=== PATIENT | female | born 1940 | race Caucasian/White ===

== ENCOUNTER 2017-08-21 09:50 | Emergency (ER) | payer OTHER ==
[2017-08-21 13:13] LABS: BASOPHILS # (AUTO) 0.1 10^3/uL (0.0-0.1); EOSINOPHILS # (AUTO) 0.1 10^3/uL (0.0-0.7); HGB - HEMOGLOBIN 15.4 g/dL (12.0-16.0); LYMPHOCYTES # (AUTO) 1.9 10^3/uL (1.5-3.5); LYMPHOCYTES % (AUTO) 29.5 %; MEAN CORPUSCULAR HEMOGLOBIN 30.1 pg (27.0-31.0); MEAN CORPUSCULAR HGB CONC 34.4 g/dL (32.0-36.0); MEAN CORPUSCULAR VOLUME 87.5 fL (81.0-99.0); MEAN PLATELET VOLUME 8.9 fL (7.9-10.8); MONOCYTES # (AUTO) 0.7 10^3/uL (0.0-1.0); MONOCYTES % (AUTO) 10.5 %; NEUTROPHILS # (AUTO) 3.7 10^3/uL (1.5-6.6); PLT - PLATELET COUNT 166 10^3/uL (130-450); RED BLOOD COUNT 5.11 10^6/uL (4.20-5.40); RED CELL DISTRIBUTION WIDTH 13.7 % (12.0-15.0); WHITE BLOOD COUNT 6.3 x10^3/uL (4.8-10.8)
[2017-08-21 13:33] LABS: ALBUMIN 3.7 g/dL (3.2-5.5); ALBUMIN/GLOBULIN RATIO 1.4 (1.0-2.2); CREATININE 0.6 mg/dL (0.4-1.0); TOTAL PROTEIN 6.4 g/dL (6.7-8.2)
--- NOTE | 2017-08-21 14:07 | ED Physician Documentation ---
History of Present Illness - Stated complaint Stated Complaint: LOW PULSE - Chief complaint Chief Complaint: Cardiac - History obtained from History obtained from: Patient - History of Present Illness Pain level max: 0 Pain level now: 0 - Additonal information Additional information: The patient is a 77-year-old female who presents with low pulse, which she measured as low as 39 this morning when she took her blood pressure. She has been recording pulses in the 40s intermittently for the past 4 months. She denies any associated chest pain or shortness of breath. She denies lightheadedness, fever, nausea or vomiting. Her past medical history is significant for Graves' disease, for which she is status post thyroidectomy. Her thyroid replacement medication was decreased one week ago by her Naturopathic physician, but she does not know the dosage that she was taking or that she is currently taking. She has been prescribed lisinopril 10 mg daily for hypertension, but she has decreased the dosage to 5 mg of her own volition. Review of Systems Constitutional: denies: Fever Nose: denies: Congestion Throat: denies: Sore throat Cardiac: denies: Chest pain / pressure Respiratory: denies: Dyspnea, Cough GI: denies: Abdominal Pain, Nausea, Vomiting : denies: Dysuria Skin: denies: Rash Musculoskeletal: denies: Back pain, Extremity swelling Neurologic: denies: Focal weakness, Numbness, Headache PD PAST MEDICAL HISTORY - Past Medical History Cardiovascular: Hypertension Musculoskeletal: Osteoarthritis, Osteopenia Other Past Medical History: Grave's Disease - Past Surgical History Other past surgical history: Thyroidectomy - Present Medications Home Medications: Ambulatory Orders Medication Instructions Recorded Confirmed Lisinopril 08/21/17 - Allergies Allergies/Adverse Reactions: Allergies Allergy/AdvReac Type Severity Reaction Status Date / Time No Known Drug Allergies Allergy Verified 08/21/17 09:58 - Social History Does the pt smoke?: No PD ED PE NORMAL - Vitals Vital signs reviewed: Yes (hypertensive) - General General: Alert and oriented X 3, Well developed/nourished - HEENT HEENT: Atraumatic, Moist mucous membranes, Pharynx benign - Neck Neck: Supple, no meningeal sign, No adenopathy, No JVD - Cardiac Cardiac: No murmur, Other (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, with pulse in the low 40s.) - Respiratory Respiratory: No respiratory distress, Clear bilaterally - Abdomen Abdomen: Soft, Non tender - Back Back: No CVA TTP - Derm Derm: No rash - Extremities Extremities: No edema, No calf tenderness / cord - Neuro Neuro: Alert and oriented X 3, No motor deficit, No sensory deficit Results - Vitals Vitals: Oxygen O2 Source Room air - EKG (time done) 10:20 Rate: Rate (enter#) (106) Rhythm: Other (Ventricular bigeminy) [place]: Normal Intervals: Normal NM QRS: Normal Ischemia: Normal ST segments Compare to prior EKG: Old EKG unavailable Computer interpretation: Agree with computer - Labs Labs: Laboratory Tests 08/21/17 08/21/17 08/21/17 13:07 13:07 13:07 WBC 6.3 RBC 5.11 Hgb 15.4 Hct 44.7 MCV 87.5 MCH 30.1 MCHC 34.4 RDW 13.7 Plt Count 166 MPV 8.9 Neut # 3.7 Lymph # 1.9 [place] # 0.7 Eos # 0.1 Baso # 0.1 Absolute Nucleated RBC 0.00 Nucleated RBC % 0.0 Sodium 137 Potassium 3.9 Chloride 104 Carbon Dioxide 25 Anion Gap 8.0 BUN 16 Creatinine 0.6 Estimated GFR (MDRD) 96 Glucose 84 Calcium 9.0 Total Bilirubin 1.0 AST 28 ALT 29 Alkaline Phosphatase 67 Troponin I < 0.04 Total Protein 6.4 L Albumin 3.7 Globulin 2.7 Albumin/Globulin Ratio 1.4 Lipase 29 TSH 08/21/17 13:07 WBC RBC Hgb Hct MCV MCH MCHC RDW Plt Count MPV Neut # Lymph # [place] # Eos # Baso # Absolute Nucleated RBC Nucleated RBC % Sodium Potassium Chloride Carbon Dioxide Anion Gap BUN Creatinine Estimated GFR (MDRD) Glucose Calcium Total Bilirubin AST ALT Alkaline Phosphatase Troponin I Total Protein Albumin Globulin Albumin/Globulin Ratio Lipase TSH < 0.08 L PD MEDICAL DECISION MAKING - ED course Complexity details: reviewed results, re-evaluated patient, considered differential, d/w patient, d/w PMD ED course: The patient's presentation is significant for ventricular bigeminy with a perfused rate in the 40's. She is asymptomatic. The bigeminy is intermittent, with an otherwise normal sinus rhythm. Electrocardiogram reveals no evidence of cardiac ischemia, and troponin is normal. Based on her recordings, she has had asymptomatic bigeminy intermittently for several months. Her TSH is less than 0.08, but that is not surprising given that she is status post thyroidectomy. I discussed her condition with CHRIS Cohen, who is on-call for Dr. Prince, the patient's primary physician. I discussed with him, as well as with the patient , the possibility of referral to a rounding machine operator with electrophysiologic expertise. I discussed with the patient potentially worrisome signs or symptoms that should prompt reevaluation in the emergency department. Departure - Departure Disposition: 01 Home, Self Care Clinical Impression: Atrial arrhythmia, Bigeminy Condition: Stable Instructions: ED Dysrhythmia Unspecified Follow-Up: Frederic Prince DO [Primary Care Provider] - Comments: Continue taking your thyroid replacement medication as prescribed. Follow up with your primary physician within 1-2 weeks. Call to schedule appointment. You may need a referral to a rounding machine operator with electrophysiology expertise. Return to the emergency department if you develop shortness of breath, lightheadedness, chest pain, or otherwise worsening symptoms. Discharge Date/Time: 08/21/17 14:27
[2017-08-21 14:21] VITALS: BP 156/84
== END 2017-08-21 14:27 | disposition home or self-care (01) ==
LOC: ED 09:50
DX: I49.8 Other specified cardiac arrhythmias (principal); R00.8 Other abnormalities of heart beat; I10 Essential (primary) hypertension; E05.00 Thyrotoxicosis with diffuse goiter without thyrotoxic crisis or storm
CPT/HCPCS: 36415; 80053; 83690; 84443; 84484; 85025; 93005; 99283; 99284

== ENCOUNTER 2018-10-25 08:00 | Outpatient (CLI) | payer OTHER ==
[2018-10-25 19:20] LABS: THYROID STIMULATING HORMONE 4.03 uIU/mL (0.34-5.60)
[2018-10-25 19:22] LABS: FREE T4 (FREE THYROXINE) 0.32 ng/dL (0.58-1.64)
== END 2018-10-25 23:59 | disposition home or self-care (01) ==
LOC: LAB.N 08:00
PROVIDERS: ATTEND Family Medicine
DX: E89.0 Postprocedural hypothyroidism (principal)
CPT/HCPCS: 36415; 84439; 84443; 84481

== ENCOUNTER 2018-11-05 14:22 | Outpatient (CLI) | payer OTHER ==
--- NOTE | 2018-11-08 | XRAY Report ---
Reason: HIP JOINT PAIN, RIGHT Procedure Date: 11/05/2018 Accession Number: [id number] / [id number] Procedure: XRN - Hip w/Pelvis 2-3V RT CPT Code: FULL RESULT: EXAM: RIGHT HIP RADIOGRAPHY EXAM DATE: 11/05/2018 02:36 PM. CLINICAL HISTORY: HIP JOINT PAIN, RIGHT. COMPARISON: None. TECHNIQUE: 2 views. FINDINGS: Bones: Normal. No fractures or bone lesion. Joints: The bilateral hip, pubis symphysis, and sacroiliac joints are normally aligned. Mild bilateral hip joint space narrowing. Normal alignment. Mild pubic symphysis sclerosis. Degenerative disease noted in the lower lumbar spine. Soft Tissues: Normal. No soft tissue swelling. IMPRESSION: 1. No acute fracture. 2. Normal alignment. Mild bilateral hip arthritis. RADIA
== END 2018-11-05 14:23 | disposition home or self-care (01) ==
LOC: DI.N 14:22
PROVIDERS: ATTEND Family Medicine
DX: M16.0 Bilateral primary osteoarthritis of hip (principal)

== ENCOUNTER 2019-01-18 09:51 | Outpatient (CLI) | payer OTHER ==
[2019-01-18 12:58] LABS: THYROID STIMULATING HORMONE 8.35 uIU/mL (0.34-5.60)
[2019-01-18 13:00] LABS: FREE T4 (FREE THYROXINE) 0.37 ng/dL (0.58-1.64)
== END 2019-01-18 23:59 ==
LOC: LAB.N 09:51
PROVIDERS: ATTEND Family Medicine
DX: E89.0 Postprocedural hypothyroidism (principal)
CPT/HCPCS: 36415; 84439; 84443; 84481

== ENCOUNTER 2019-03-29 14:16 | Outpatient (CLI) | payer OTHER ==
[2019-03-29 19:29] LABS: THYROID STIMULATING HORMONE 1.66 uIU/mL (0.34-5.60)
[2019-03-29 19:31] LABS: FREE T4 (FREE THYROXINE) 0.86 ng/dL (0.58-1.64)
== END 2019-03-29 23:59 ==
LOC: LAB.N 14:16
PROVIDERS: ATTEND Family Medicine
DX: E89.0 Postprocedural hypothyroidism (principal)
CPT/HCPCS: 36415; 84439; 84443; 84481

== ENCOUNTER 2020-03-01 08:00 | Outpatient (CLI) | payer OTHER ==
[2020-03-01 18:51] LABS: FREE T3 3.62 pg/mL (2.5-3.9); FREE T4 (FREE THYROXINE) 0.84 ng/dL (0.58-1.64)
== END 2020-03-01 23:59 | disposition home or self-care (01) ==
LOC: LAB.WCP 08:00
PROVIDERS: ATTEND Naturopath
DX: E89.0 Postprocedural hypothyroidism (principal)
CPT/HCPCS: 36415; 84439; 84443; 84481

== ENCOUNTER 2020-06-01 14:47 | Outpatient (CLI) | payer OTHER ==
[2020-06-02 07:46] LABS: PROGESTERONE 2.4 ng/mL
== END 2020-06-01 23:59 | disposition home or self-care (01) ==
LOC: LAB.WCP 14:47
PROVIDERS: ATTEND Naturopath
DX: Z79.890 Hormone replacement therapy (principal)
CPT/HCPCS: 36415; 81599; 82670; 82677; 84144

== ENCOUNTER 2020-07-24 09:47 | Outpatient (CLI) | payer OTHER ==
[2020-07-24 11:39] LABS: BASOPHILS % (AUTO) 0.4 %; EOSINOPHILS # (AUTO) 0.1 10^3/uL (0.0-0.7); EOSINOPHILS % (AUTO) 1.2 %; HCT - HEMATOCRIT 40.7 % (37.0-47.0); HGB - HEMOGLOBIN 13.7 g/dL (12.0-16.0); LYMPHOCYTES # (AUTO) 1.7 10^3/uL (1.5-3.5); LYMPHOCYTES % (AUTO) 29.2 %; MEAN CORPUSCULAR HEMOGLOBIN 30.4 pg (27.0-31.0); MEAN CORPUSCULAR HGB CONC 33.7 g/dL (32.0-36.0); MEAN CORPUSCULAR VOLUME 90.4 fL (81.0-99.0); MEAN PLATELET VOLUME 10.2 fL (7.9-10.8); MONOCYTES # (AUTO) 0.5 10^3/uL (0.0-1.0); MONOCYTES % (AUTO) 8.9 %; NEUTROPHILS # (AUTO) 3.4 10^3/uL (1.5-6.6); NEUTROPHILS % (AUTO) 60.1 %; PLT - PLATELET COUNT 205 10^3/uL (130-450); WHITE BLOOD COUNT 5.7 x10^3/uL (4.8-10.8)
[2020-07-24 12:44] LABS: ALBUMIN 3.8 g/dL (3.2-5.5); ALBUMIN/GLOBULIN RATIO 1.7 (1.0-2.2); ALKALINE PHOSPHATASE 69 IU/L (42-121); ALT ALANINE AMINOTRANSFERASE 23 IU/L (10-60); AST ASPARTATE AMINOTRANSFERASE 24 IU/L (10-42); BILIRUBIN,TOTAL 0.8 mg/dL (0.2-1.0); BUN - BLOOD UREA NITROGEN 19 mg/dL (6-20); CALCIUM 9.8 mg/dL (8.5-10.3); CARBON DIOXIDE - CO2 25 mmol/L (21-32); CHLORIDE 102 mmol/L (101-111); CHOL/HDL RATIO 4.2 (<4.4); CHOLESTEROL 241 mg/dL; CREATININE 0.5 mg/dL (0.4-1.0); GFR - MDRD 118 (>89); GLUCOSE 87 mg/dL (70-100); HDL CHOLESTEROL 58 mg/dL; LDL CHOLESTEROL,CALCULATED 165 mg/dL; LDL/HDL RATIO 2.8 (<4.4); POTASSIUM 4.1 mmol/L (3.5-5.0); SODIUM 137 mmol/L (135-145); TRIGLYCERIDES 90 mg/dL; VLDL CHOLESTEROL 18 mg/dL
[2020-07-24 12:47] LABS: THYROID STIMULATING HORMONE 0.21 uIU/mL (0.34-5.60)
[2020-07-24 13:20] LABS: FREE T4 (FREE THYROXINE) 0.85 ng/dL (0.58-1.64)
== END 2020-07-24 23:59 | disposition home or self-care (01) ==
LOC: LAB.WCP 09:47
PROVIDERS: ATTEND Nurse Practitioner Family
DX: E78.5 Hyperlipidemia, unspecified (principal); I10 Essential (primary) hypertension; E89.0 Postprocedural hypothyroidism; M85.80 Other specified disorders of bone density and structure, unspecified site
CPT/HCPCS: 36415; 80053; 80061; 82306; 83721; 84439; 84443; 85025

== ENCOUNTER 2020-11-13 12:06 | Outpatient (CLI) | payer OTHER ==
[2020-11-13 19:28] LABS: FREE T4 (FREE THYROXINE) 0.85 ng/dL (0.58-1.64)
[2020-11-13 19:29] LABS: FREE T3 3.99 pg/mL (2.5-3.9); THYROID STIMULATING HORMONE 0.27 uIU/mL (0.34-5.60)
[2020-11-14 07:41] LABS: PROGESTERONE 2.4 ng/mL
== END 2020-11-13 23:59 | disposition home or self-care (01) ==
LOC: LAB.WCP 12:06
PROVIDERS: ATTEND Naturopath
DX: E03.9 Hypothyroidism, unspecified (principal); Z79.890 Hormone replacement therapy
CPT/HCPCS: 36415; 81599; 82670; 82672; 82677; 84144; 84403; 84439; 84443; 84481

== ENCOUNTER 2021-01-08 08:00 | Outpatient (CLI) | payer OTHER ==
[2021-01-08 18:29] LABS: THYROID STIMULATING HORMONE 0.44 uIU/mL (0.34-5.60)
[2021-01-08 18:30] LABS: FREE T3 3.58 pg/mL (2.5-3.9)
[2021-01-08 18:31] LABS: FREE T4 (FREE THYROXINE) 0.95 ng/dL (0.58-1.64)
== END 2021-01-08 23:59 | disposition home or self-care (01) ==
LOC: LAB.WCP 08:00
PROVIDERS: ATTEND Physician Assistant Medical
DX: R53.83 Other fatigue (principal); K90.9 Intestinal malabsorption, unspecified; H35.30 Unspecified macular degeneration
CPT/HCPCS: 36415; 84439; 84443; 84481

== ENCOUNTER 2021-01-18 08:00 | Outpatient (CLI) | payer OTHER ==
[2021-01-18 18:59] LABS: CHOL/HDL RATIO 3.8 (<4.4); CHOLESTEROL 256 mg/dL; HDL CHOLESTEROL 67 mg/dL; LDL CHOLESTEROL,CALCULATED 168 mg/dL; LDL/HDL RATIO 2.5 (<4.4); TRIGLYCERIDES 103 mg/dL; VLDL CHOLESTEROL 21 mg/dL
== END 2021-01-18 23:59 | disposition home or self-care (01) ==
LOC: LAB.WCP 08:00
PROVIDERS: ATTEND Physician Assistant Medical
DX: E78.5 Hyperlipidemia, unspecified (principal); M85.80 Other specified disorders of bone density and structure, unspecified site; M89.9 Disorder of bone, unspecified
CPT/HCPCS: 36415; 80061; 82306; 83721

== ENCOUNTER 2021-06-17 18:22 | Outpatient (CLI) | payer OTHER ==
[2021-06-17 21:18] LABS: THYROID STIMULATING HORMONE 0.39 uIU/mL (0.34-5.60)
[2021-06-17 21:20] LABS: FREE T3 6.39 pg/mL (2.5-3.9); FREE T4 (FREE THYROXINE) 1.38 ng/dL (0.58-1.64)
[2021-06-19 04:11] LABS: ESTRADIOL <15 pg/mL
[2021-06-19 04:49] LABS: PROGESTERONE 1.4 ng/mL
== END 2021-06-17 18:23 | disposition home or self-care (01) ==
LOC: LAB.N 18:22
PROVIDERS: ATTEND Naturopath
DX: E03.9 Hypothyroidism, unspecified (principal); Z79.890 Hormone replacement therapy
CPT/HCPCS: 36415; 81599; 82670; 82672; 82677; 84144; 84403; 84439; 84443; 84480; 84481

== ENCOUNTER 2021-08-01 09:10 | Outpatient (CLI) | payer OTHER ==
[2021-08-01 12:23] LABS: BASOPHILS # (AUTO) 0.1 10^3/uL (0.0-0.1); BASOPHILS % (AUTO) 0.6 %; EOSINOPHILS # (AUTO) 0.1 10^3/uL (0.0-0.7); EOSINOPHILS % (AUTO) 1.1 %; HCT - HEMATOCRIT 43.8 % (37.0-47.0); HGB - HEMOGLOBIN 14.8 g/dL (12.0-16.0); LYMPHOCYTES # (AUTO) 1.7 10^3/uL (1.5-3.5); MEAN CORPUSCULAR HEMOGLOBIN 30.3 pg (27.0-31.0); MEAN CORPUSCULAR HGB CONC 33.8 g/dL (32.0-36.0); MEAN CORPUSCULAR VOLUME 89.6 fL (81.0-99.0); MEAN PLATELET VOLUME 10.4 fL (7.9-10.8); MONOCYTES % (AUTO) 10.8 %; NEUTROPHILS # (AUTO) 6.2 10^3/uL (1.5-6.6); NEUTROPHILS % (AUTO) 68.1 %; PLT - PLATELET COUNT 274 10^3/uL (130-450); RED BLOOD COUNT 4.89 10^6/uL (4.20-5.40); RED CELL DISTRIBUTION WIDTH 13.1 % (12.0-15.0)
[2021-08-01 12:42] LABS: ALBUMIN 3.7 g/dL (3.2-5.5); ALBUMIN/GLOBULIN RATIO 1.2 (1.0-2.2); ALKALINE PHOSPHATASE 84 IU/L (42-121); ALT ALANINE AMINOTRANSFERASE 23 IU/L (10-60); AST ASPARTATE AMINOTRANSFERASE 23 IU/L (10-42); BILIRUBIN,TOTAL 0.6 mg/dL (0.2-1.0); BUN - BLOOD UREA NITROGEN 16 mg/dL (6-20); CALCIUM 9.7 mg/dL (8.5-10.3); CARBON DIOXIDE - CO2 29 mmol/L (21-32); CHLORIDE 99 mmol/L (101-111); CHOL/HDL RATIO 3.4 (<4.4); CHOLESTEROL 202 mg/dL; CREATININE 0.6 mg/dL (0.4-1.0); GFR - MDRD 95 (>89); GLUCOSE 98 mg/dL (70-100); HDL CHOLESTEROL 59 mg/dL; LDL CHOLESTEROL,CALCULATED 130 mg/dL; LDL/HDL RATIO 2.2 (<4.4); POTASSIUM 4.4 mmol/L (3.5-5.0); SODIUM 138 mmol/L (135-145); TOTAL PROTEIN 6.9 g/dL (6.7-8.2); TRIGLYCERIDES 64 mg/dL; VLDL CHOLESTEROL 13 mg/dL
== END 2021-08-01 09:11 | disposition home or self-care (01) ==
LOC: LAB.N 09:10
PROVIDERS: ATTEND Physician Assistant Medical
DX: E78.5 Hyperlipidemia, unspecified (principal); I10 Essential (primary) hypertension; Z13.21 Encounter for screening for nutritional disorder
CPT/HCPCS: 36415; 80053; 80061; 82306; 83721; 85025

== ENCOUNTER 2021-10-10 13:57 | Outpatient (CLI) | payer OTHER ==
--- NOTE | 2021-10-10 17:46 | Ultrasound Report ---
PROCEDURE: Ext Limited Non Vascular INDICATIONS: SOFT TISSUSE MASS TECHNIQUE: Real-time scanning was performed of the left upper arm, with image documentation. COMPARISON: None. FINDINGS: Focused ultrasound examination of lateral left upper arm at patient's reported area of pal pable lump shows a 3.5 x 5.6 x 1.2 cm slightly hyperechoic and solid appearing lesion within subcutan eous soft tissue. No internal vascularity is seen. IMPRESSION: Finding likely represent 3.5 x 5.6 x 1.2 cm lipoma within subcutaneous soft tissue of le ft lateral upper arm. Clinical correlation and follow-up is recommended. Reviewed by: Rupesh Mckenzie MD on 10/10/2021 5:45 PM PDT Approved by: Rupesh Mckenzie MD on 10/10/2021 5:45 PM PDT Station ID: [id number]
== END 2021-10-10 13:58 | disposition home or self-care (01) ==
LOC: DI 13:57
PROVIDERS: ATTEND Physician Assistant Medical
DX: M79.9 Soft tissue disorder, unspecified (principal)

== ENCOUNTER 2021-12-05 13:25 | Outpatient (CLI) | payer OTHER ==
[2021-12-05 18:59] LABS: FREE T3 3.96 pg/mL (2.5-3.9); THYROID STIMULATING HORMONE 2.14 uIU/mL (0.34-5.60)
[2021-12-05 19:00] LABS: FREE T4 (FREE THYROXINE) 0.77 ng/dL (0.58-1.64)
[2021-12-06 06:10] LABS: ESTRADIOL 11.6 pg/mL (.); PROGESTERONE 1.2 ng/mL (.)
== END 2021-12-05 13:26 | disposition home or self-care (01) ==
LOC: LAB.N 13:25
PROVIDERS: ATTEND Naturopath
DX: E03.9 Hypothyroidism, unspecified (principal); Z79.890 Hormone replacement therapy
CPT/HCPCS: 36415; 81599; 82627; 82670; 82672; 82677; 84140; 84144; 84403; 84439; 84443; 84481

== ENCOUNTER 2022-02-06 09:48 | Day surgery (SDC) | payer OTHER ==
--- NOTE | 2022-02-06 10:06 | ANESTHESIA ---
Pre-Anesthesia VS, & Labs - Diagnosis left upper arm lipoma - Procedure excision of left upper arm lipoma Height: 4 ft 11 in Home Medications and Allergies Home Medications: Ambulatory Orders Thyroid [[place] Thyroid] 60 mg PO DAILY 01/31/22 lisinopriL [Lisinopril] 5 mg PO DAILY 08/21/17 Thyroid [[place] Thyroid] 60 mg PO DAILY 01/31/22 Allergies/Adverse Reactions: Allergies Allergy/AdvReac Type Severity Reaction Status Date / Time No Known Drug Allergies Allergy Verified 08/21/17 09:58 Anes History & Medical History - Medical History Cardiovascular: reports: Hypertension, High cholesterol Pulmonary: reports: Asthma Gastrointestinal: reports: Chronic constipation Urinary: reports: None Musculoskeletal: reports: Osteoarthritis, Osteopenia Endocrine/Autoimmune: reports: HyPOthyroidism, Other Skin: reports: None - Surgical History General: reports: Appendectomy, Colonoscopy Eyes Ears Nose Throat (EENT): reports: Cataracts
== END 2022-02-06 09:49 | disposition home or self-care (01) ==
LOC: SDS 09:48
PROVIDERS: ATTEND Surgery
DX: Z53.09 Procedure and treatment not carried out because of other contraindication (principal)

== ENCOUNTER 2022-03-01 10:53 | Outpatient (CLI) | payer OTHER ==
[2022-03-01 19:36] LABS: ALBUMIN 3.4 g/dL (3.2-5.5); ALKALINE PHOSPHATASE 77 IU/L (42-121); ALT ALANINE AMINOTRANSFERASE 21 IU/L (10-60); AST ASPARTATE AMINOTRANSFERASE 24 IU/L (10-42); BILIRUBIN,TOTAL 0.6 mg/dL (0.2-1.0); BUN - BLOOD UREA NITROGEN 25 mg/dL (6-20); CALCIUM 9.3 mg/dL (8.5-10.3); CARBON DIOXIDE - CO2 30 mmol/L (21-32); CHLORIDE 101 mmol/L (101-111); CHOL/HDL RATIO 3.9 (<4.4); CHOLESTEROL 217 mg/dL; CREATININE 0.6 mg/dL (0.4-1.0); GFR - MDRD 95 (>89); GLUCOSE 92 mg/dL (70-100); HDL CHOLESTEROL 55 mg/dL; LDL CHOLESTEROL,CALCULATED 149 mg/dL; LDL/HDL RATIO 2.7 (<4.4); POTASSIUM 4.6 mmol/L (3.5-5.0); SODIUM 138 mmol/L (135-145); TOTAL PROTEIN 6.9 g/dL (6.7-8.2); TRIGLYCERIDES 66 mg/dL; VLDL CHOLESTEROL 13 mg/dL
[2022-03-01 19:45] LABS: THYROID STIMULATING HORMONE 4.19 uIU/mL (0.34-5.60)
== END 2022-03-01 10:54 | disposition home or self-care (01) ==
LOC: LAB.N 10:53
PROVIDERS: ATTEND Physician Assistant Medical
DX: E89.0 Postprocedural hypothyroidism (principal); E78.5 Hyperlipidemia, unspecified
CPT/HCPCS: 36415; 80053; 80061; 83721; 84443

== ENCOUNTER 2022-03-27 11:14 | Day surgery (SDC) | payer OTHER ==
[2022-03-27] MEDS ORDERED: LACTATED RINGERS 1,000 ML IV ONE ×2 (11:57→13:54)
[2022-03-27] MEDS ORDERED: LIDOCAINE MPF 2%-EPI 1:200000 20 ML VIAL ONE (12:17)
[2022-03-27] MEDS ORDERED: BUPIVACAINE 0.25% PF 10 ML VIAL ONE (12:17)
--- NOTE | 2022-03-27 12:38 | ANESTHESIA ---
Pre-Anesthesia VS, & Labs - Diagnosis left upper arm lipoma - Procedure left upper arm excision of lipoma Vital Signs: Temp Pulse Resp BP Pulse Ox O2 Flow Rate 36.9 C 65 12 145/82 H 97 03/27/22 11:38 03/27/22 11:38 03/27/22 11:38 03/27/22 11:38 03/27/22 11:38 Height: 4 ft 11 in Weight (kg): 56 kg Body Mass Index: 24.9 BMI Classification: Normal - NPO >8 hours - Is Patient ?: No Home Medications and Allergies lisinopriL [Lisinopril] 5 mg PO DAILY 08/21/17 Thyroid [[place] Thyroid] 60 mg PO DAILY 01/31/22 Allergies/Adverse Reactions: Allergies Allergy/AdvReac Type Severity Reaction Status Date / Time No Known Drug Allergies Allergy Verified 08/21/17 09:58 Anes History & Medical History - Anesthetic History Anesthesia Complications: reports: No previous complications - Medical History Cardiovascular: reports: Hypertension, High cholesterol Pulmonary: reports: Asthma Gastrointestinal: reports: Chronic constipation Urinary: reports: None Musculoskeletal: reports: Osteoarthritis, Osteopenia Endocrine/Autoimmune: reports: HyPOthyroidism, Other Skin: reports: None Smoking Status: Former smoker History of Cancer?: No - Surgical History General: reports: Appendectomy, Colonoscopy Eyes Ears Nose Throat (EENT): reports: Cataracts Exam General: Alert, Oriented x3 Dental: WNL Mouth Opening: Greater than 4 Fingerbreadths Mallampati classification: III Thyromental Distance: greater than 6 cm Respiratory: Lungs clear Cardiovascular: Regular rate Plan Anesthesia Type: Total IV Consent for Procedure(s) Verified and Reviewed: Yes Code Status: Attempt Resuscitation ASA classification: 2-Mild systemic disease Is this case an emergency?: No
[2022-03-27] MEDS ORDERED: PROPOFOL 200 MG/20 ML VIAL IVP ONE ×2 (12:58→13:41)
[2022-03-27] MEDS ORDERED: MIDAZOLAM 2 MG/2 ML VIAL ONE (12:58)
[2022-03-27] MEDS ORDERED: LIDOCAINE-PF 2% 10 ML AMP SUBQ ONE (12:58)
[2022-03-27] MEDS ORDERED: fentaNYL 100 MCG/2 ML VIAL ONE (12:59)
--- NOTE | 2022-03-27 13:00 | HISTORY & PHYSICAL EXAMINATION ---
Chief Complaint - Chief Complaint Chief Complaint: painful left arm lump History of Present Illness - History Obtained From Records Reviewed: yes History obtained from: pt Exam Limitations: none - History of Present Illness HPI Comment/Other: growing and painful left upper arm lipoma History - Past Medical History Cardiovascular: reports: Hypertension, High cholesterol Respiratory: reports: Asthma Endocrine/Autoimmune: reports: HyPOthyroidism, Other GI: reports: Chronic constipation : reports: None HEENT: reports: Chronic vision loss, Macular degeneration, Chronic hearing loss Psych: reports: None Musculoskeletal: reports: Osteoarthritis, Osteopenia Derm: reports: None MRSA Hx?: No - Past Surgical History General: reports: Appendectomy, Colonoscopy HEENT: reports: Cataracts Meds/Allgy - Home Medications Home Medications: Ambulatory Orders Medication Instructions Recorded Confirmed lisinopriL [Lisinopril] 5 mg PO DAILY 08/21/17 03/27/22 Thyroid [[place] Thyroid] 60 mg PO DAILY 01/31/22 03/27/22 - Allergies Allergies/Adverse Reactions: Allergies Allergy/AdvReac Type Severity Reaction Status Date / Time No Known Drug Allergies Allergy Verified 08/21/17 09:58 Review of Systems - Other Findings Other Findings: 10 pt ros as above otherwise unremarkable Exam - Vital Signs Reviewed Vital Signs: Yes Vital Signs: Vital Signs x48h Temp Pulse Resp BP Pulse Ox 03/27/22 11:38 36.9 C 65 12 145/82 H 97 - Physical Exam General Appearance: positive: No acute distress, Alert ENT: positive: No signs of dehydration Neck: positive: No JVD, Trachea midline Respiratory: positive: No respiratory distress, Breath sounds nml Cardiovascular: positive: Regular rate & rhythm Abdomen: positive: Non-tender Extremities: positive: Other (4 cm lipoma left upper arm) Neurologic/Psychiatric: positive: Oriented x3 Conclusion/Plan - Problem List (1) Lipoma of upper arm Conclusion/Plan: plan excision lipoma. parq held and consent obtained
[2022-03-27] MEDS ORDERED: HYDROcod/ACETAM 5/325 MG TABLET PO PRN (13:56)
[2022-03-27 14:03] VITALS: BP 107/71
--- NOTE | 2022-03-27 14:04 | OPERATIVE REPORT ---
Operative Report - General Procedure Date: 03/27/22 Planned Procedure: excision left upper arm 4 cm lipoma Pre-Op Diagnosis: left upper arm 4 cm lipoma Procedure Performed: excision left upper arm 4 cm subcutaneous lipoma 3 cm intermediate repair Post Op Diagnosis: same - Procedure Note Primary Surgeon: madhuri salazar Anesthesia Technique: Local, MAC Pathology: sent Estimated Blood Loss (mL): 0 Drain/Tube Type: Other (none) Indications: painful left upper arm mass Findings: benign appearing lobular lipoma Complications: none - Other Other Information/Narrative: The patient was properly identified brought to the operating room and placed in supine position. Monitored anesthesia care was given as well as IV sedation her left upper arm was prepped and draped in a sterile fashion. Antibiotics were not given. Given the size of her lipoma and elliptical and vertical incision was made over the left lipoma. A small ellipse of skin was removed. Dissection proceeded with cutting current down to the lipoma. The lipoma was removed in its entirety with gentle retraction and Metzenbaum scissor. Hemostasis was assured. Incision measured approximately 3 cm. Intermediate repair was performed. Subcutaneous tissue was closed with interrupted 3-0 Vicryl suture. Buried interrupted subdermal 3-0 Vicryl sutures were then placed. Skin was closed with a running 4-0 Monocryl subcuticular suture. Dressing was applied. She tolerated the procedure well was awakened and brought to recovery in good condition.
[2022-03-27] MEDS ORDERED: BUPIVACAINE 0.25% PF 10 ML VIAL SUBQ ONE (14:11)
[2022-03-27] MEDS ORDERED: LIDOCAINE MPF 2%-EPI 1:200000 20 ML VIAL SUBQ ONE (14:11)
--- NOTE | 2022-03-27 14:11 | ANESTHESIA POST OP EVALUATION ---
Anesthesia Post Eval - Post Anesthesia Eval Vitals: Last Vital Signs Temp 37 C 03/27/22 13:54 Pulse 61 03/27/22 14:03 Resp 14 03/27/22 14:03 BP 107/71 03/27/22 14:03 Pulse Ox 100 03/27/22 14:03 O2 Flow Rate CV Function Including HR & BP: Stable Pain Control: Satisfactory Nausea & Vomiting: Negative Mental Status: Baseline Respiratory Status: Airway Patent Hydration Status: Satisfactory Anesthesia Complications: None
== END 2022-03-27 11:15 | disposition home or self-care (01) ==
LOC: SDS 11:14
PROVIDERS: ATTEND Surgery
PROC: 0JBF0ZZ Excision of Left Upper Arm Subcutaneous Tissue and Fascia, Open Approach (ICD-10-PCS; principal; 2022-03-27 13:30)
DX: D17.22 Benign lipomatous neoplasm of skin and subcutaneous tissue of left arm (principal); I10 Essential (primary) hypertension; Z87.891 Personal history of nicotine dependence
CPT/HCPCS: 24071; J7120

== ENCOUNTER 2022-05-24 11:36 | Outpatient (CLI) | payer OTHER ==
[2022-05-24 18:43] LABS: BASOPHILS % (AUTO) 0.6 %; EOSINOPHILS # (AUTO) 0.1 10^3/uL (0.0-0.7); EOSINOPHILS % (AUTO) 1.7 %; HCT - HEMATOCRIT 43.4 % (37.0-47.0); HGB - HEMOGLOBIN 14.3 g/dL (12.0-16.0); LYMPHOCYTES # (AUTO) 1.7 10^3/uL (1.5-3.5); LYMPHOCYTES % (AUTO) 31.4 %; MEAN CORPUSCULAR HEMOGLOBIN 30.5 pg (27.0-31.0); MEAN CORPUSCULAR HGB CONC 32.9 g/dL (32.0-36.0); MEAN CORPUSCULAR VOLUME 92.5 fL (81.0-99.0); MONOCYTES # (AUTO) 0.6 10^3/uL (0.0-1.0); MONOCYTES % (AUTO) 11.6 %; NEUTROPHILS # (AUTO) 2.9 10^3/uL (1.5-6.6); NEUTROPHILS % (AUTO) 54.7 %; PLT - PLATELET COUNT 203 10^3/uL (130-450); RED BLOOD COUNT 4.69 10^6/uL (4.20-5.40); RED CELL DISTRIBUTION WIDTH 13.1 % (12.0-15.0); WHITE BLOOD COUNT 5.3 x10^3/uL (4.8-10.8)
[2022-05-24 18:59] LABS: ALBUMIN 3.6 g/dL (3.2-5.5); ALBUMIN/GLOBULIN RATIO 1.4 (1.0-2.2); ALKALINE PHOSPHATASE 77 IU/L (42-121); ALT ALANINE AMINOTRANSFERASE 32 IU/L (10-60); AST ASPARTATE AMINOTRANSFERASE 28 IU/L (10-42); BILIRUBIN,TOTAL 0.7 mg/dL (0.2-1.0); BUN - BLOOD UREA NITROGEN 25 mg/dL (6-20); CALCIUM 9.5 mg/dL (8.5-10.3); CARBON DIOXIDE - CO2 28 mmol/L (21-32); CHLORIDE 102 mmol/L (101-111); CHOL/HDL RATIO 3.9 (<4.4); CHOLESTEROL 248 mg/dL; CREATININE 0.6 mg/dL (0.4-1.0); GFR - MDRD 95 (>89); GLUCOSE 90 mg/dL (70-100); HDL CHOLESTEROL 64 mg/dL; LDL CHOLESTEROL,CALCULATED 168 mg/dL; LDL/HDL RATIO 2.6 (<4.4); POTASSIUM 4.4 mmol/L (3.5-5.0); SODIUM 136 mmol/L (135-145); TOTAL PROTEIN 6.2 g/dL (6.7-8.2); TRIGLYCERIDES 82 mg/dL; VLDL CHOLESTEROL 16 mg/dL
[2022-05-24 19:05] LABS: THYROID STIMULATING HORMONE 3.95 uIU/mL (0.34-5.60)
== END 2022-05-24 11:37 | disposition home or self-care (01) ==
LOC: LAB.N 11:36
PROVIDERS: ATTEND Physician Assistant Medical
DX: I10 Essential (primary) hypertension (principal); E78.5 Hyperlipidemia, unspecified; E89.0 Postprocedural hypothyroidism; M89.9 Disorder of bone, unspecified; R06.09 Other forms of dyspnea
CPT/HCPCS: 36415; 80053; 80061; 82306; 83721; 84443; 85025

== ENCOUNTER 2022-06-26 17:21 | Outpatient (CLI) | payer OTHER ==
[2022-06-26 21:29] LABS: THYROID STIMULATING HORMONE 2.94 uIU/mL (0.34-5.60)
[2022-06-26 21:30] LABS: FREE T3 2.71 pg/mL (2.5-3.9)
[2022-06-26 21:31] LABS: FREE T4 (FREE THYROXINE) 0.75 ng/dL (0.58-1.64)
[2022-06-28 07:09] LABS: DHEA-SULFATE 84.8 ug/dL (13.9-142.8); ESTRADIOL <5.0 pg/mL (.); PROGESTERONE 1.2 ng/mL (.)
[2022-07-02 18:07] LABS: ESTROGENS TOTAL 93 pg/mL (40-244)
[2022-07-04 12:09] LABS: REVERSE T3 SERUM 8.9 ng/dL (.)
== END 2022-06-26 17:22 | disposition home or self-care (01) ==
LOC: LAB.N 17:21
PROVIDERS: ATTEND Naturopath
DX: E03.9 Hypothyroidism, unspecified (principal); Z79.890 Hormone replacement therapy
CPT/HCPCS: 36415; 81599; 82627; 82670; 82672; 82677; 84140; 84144; 84403; 84439; 84443; 84481; 84482

== ENCOUNTER 2022-11-15 11:51 | Outpatient (CLI) | payer OTHER ==
[2022-11-15 19:29] LABS: CHOL/HDL RATIO 3.1 (<4.4); CHOLESTEROL 198 mg/dL; HDL CHOLESTEROL 63 mg/dL; LDL CHOLESTEROL,CALCULATED 120 mg/dL; LDL/HDL RATIO 1.9 (<4.4); TRIGLYCERIDES 74 mg/dL (48-352); VLDL CHOLESTEROL 15 mg/dL
[2022-11-15 19:41] LABS: THYROID STIMULATING HORMONE 0.99 uIU/mL (0.34-5.60)
== END 2022-11-15 11:52 | disposition home or self-care (01) ==
LOC: LAB.N 11:51
PROVIDERS: ATTEND Physician Assistant Medical
DX: E78.5 Hyperlipidemia, unspecified (principal); E89.0 Postprocedural hypothyroidism
CPT/HCPCS: 36415; 80061; 83721; 84443

== ENCOUNTER 2022-11-20 09:13 | Outpatient (CLI) | payer OTHER | END 2022-11-20 09:14 | disposition home or self-care (01) | LOC: LAB.N 09:13 | PROVIDERS: ATTEND Physician Assistant Medical | DX: M85.80 Other specified disorders of bone density and structure, unspecified site (principal) | CPT/HCPCS: 36415; 82306 ==

== ENCOUNTER 2023-01-12 10:51 | Outpatient (CLI) | payer OTHER ==
[2023-01-12 18:42] LABS: THYROID STIMULATING HORMONE 0.69 uIU/mL (0.34-5.60)
[2023-01-14 07:10] LABS: ESTRADIOL 19.1 pg/mL (.); PROGESTERONE 0.8 ng/mL (.)
[2023-01-18 21:07] LABS: REVERSE T3 SERUM 12.4 ng/dL (.)
== END 2023-01-12 10:52 | disposition home or self-care (01) ==
LOC: LAB.N 10:51
DX: E03.9 Hypothyroidism, unspecified (principal); Z79.890 Hormone replacement therapy
CPT/HCPCS: 36415; 81599; 82627; 82670; 82672; 82677; 84140; 84144; 84403; 84439; 84443; 84481; 84482

== ENCOUNTER 2023-08-17 16:58 | Outpatient (CLI) | payer OTHER, MEDICARE | END 2023-08-17 16:59 | disposition home or self-care (01) | LOC: LAB.N 16:58 | PROVIDERS: ATTEND Naturopath | DX: Z51.81 Encounter for therapeutic drug level monitoring (principal); Z79.890 Hormone replacement therapy | CPT/HCPCS: 36415; 81599; 82627; 82670; 82672; 82677; 84144; 84403 ==

== ENCOUNTER 2023-10-22 13:05 | Outpatient (CLI) | payer OTHER, MEDICARE ==
[2023-10-22 18:02] LABS: THYROID STIMULATING HORMONE 6.07 uIU/mL (0.34-5.60)
== END 2023-10-22 13:06 | disposition home or self-care (01) ==
LOC: LAB.N 13:05
PROVIDERS: ATTEND Physician Assistant Medical
DX: E89.0 Postprocedural hypothyroidism (principal)
CPT/HCPCS: 36415; 84439; 84443

== ENCOUNTER 2023-11-15 11:13 | Emergency (ER) | payer MEDICARE, OTHER ==
--- NOTE | 2023-11-15 12:42 | ED Physician Documentation ---
History of Present Illness - Stated complaint Stated Complaint: LEFT ARM PX - Chief complaint Chief Complaint: Ext Problem - History obtained from History obtained from: Patient - Additonal information Additional information: The patient comes to the emergency department chief complaint of left shoulder pain going on for the last couple of days. She states it waxes and wanes and that it seems to be helped greatly by ibuprofen and Tylenol. She states she is not having any pain right now. She denies any direct injury to the area and states it started 2 nights ago after she went to bed. She cannot seem to get comfortable and took some ibuprofen and Tylenol overnight. The pain began to recur the next morning and she found that it hurt especially when she internally rotated and tried to fasten her bra strap. She states that the pain increased so much at that time that she was unable to fasten her strap herself. Patient took another dose of ibuprofen and Tylenol and the pain went away completely and she was able to do the motion without difficulty. The patient denies any direct trauma. No numbness or tingling in her hands. She states that the pain radiates down her arm. No chest pain or shortness of breath. No neck problems. The patient has a history of arthritis in her hips but is unsure if she has any arthritis in her shoulders. No other complaints at this time. PD PAST MEDICAL HISTORY - Past Medical History Past Medical History: Yes Cardiovascular: Hypertension, High cholesterol Respiratory: Asthma Endocrine/Autoimmune: HyPOthyroidism, Other GI: Chronic constipation : None HEENT: Chronic vision loss, Macular degeneration, Chronic hearing loss Psych: None Musculoskeletal: Osteoarthritis, Osteopenia Derm: None - Past Surgical History Past Surgical History: Yes General: Appendectomy, Colonoscopy HEENT: Cataracts - Present Medications Home Medications: Ambulatory Orders Medication Instructions Recorded Confirmed lisinopriL [Lisinopril] 5 mg PO DAILY 08/21/17 03/27/22 Thyroid [[place] Thyroid] 60 mg PO DAILY 01/31/22 03/27/22 HYDROcod/ACETAM 5/325 [[place] 5/325] 1 each PO Q6H PRN #10 tablet 03/27/22 - Allergies Allergies/Adverse Reactions: Allergies Allergy/AdvReac Type Severity Reaction Status Date / Time No Known Drug Allergies Allergy Verified 11/15/23 11:42 - Social History Does the pt smoke?: No Smoking Status: Never smoker Does the pt drink ETOH?: No Does the pt have substance abuse?: No - Immunizations Immunizations are current?: Yes PD ED PE NORMAL - Vitals Vital signs reviewed: Yes - General General: Alert and oriented X 3, No acute distress, Well developed/nourished - HEENT HEENT: Atraumatic, EOMI, Moist mucous membranes - Neck Neck: Supple, no meningeal sign, No bony TTP, Other (No tenderness to palpation over neck musculature.) - Cardiac Cardiac: RRR, No murmur - Respiratory Respiratory: No respiratory distress, Clear bilaterally - Derm Derm: Normal color, Warm and dry, No rash - Extremities Extremities: No deformity, No tenderness to palpate, Normal ROM s pain, No edema - Neuro Neuro: Other (Grossly intact) - Psych Psych: Normal mood, Normal affect Results - Vitals Vitals: Vital Signs - 24 hr 11/15/23 11:32 Temperature 36.7 C Heart Rate 76 Respiratory 16 Rate Blood Pressure 163/65 H O2 Saturation 97 Oxygen O2 Source Room air PD Medical Decision Making - ED course Complexity details: considered differential, d/w patient ED course: I discussed with the patient the she seems to have musculoskeletal pain and this has easily been resolved with ibuprofen and Tylenol. The patient does not have any emergent condition. We have discussed home management of symptoms and the need for follow-up with her her primary doctor. Departure - Departure Disposition: 01 Home, Self Care Clinical Impression: Left arm pain Condition: Stable Instructions: ED Shoulder Pain [facility] Comments: Your symptoms are not indicative of a heart attack. While heart attack can cause left shoulder pain, there are many other causes for this, and they are very specific features of shoulder pain caused by heart attack which you do not have. The fact that your pain is relieved by ibuprofen and Tylenol and the fact that it is made worse by certain movements or positions is completely inconsistent with heart attack. Most likely, you have some inflammation within the shoulder joint which is causing pain signals from the nerves that go through the shoulder. Your brain can interpret these as coming from the entire arm, and these can be worse if the nerve is compressed or impinged upon by certain movements. You may take ibuprofen and Tylenol as long as you feel well enough to do so and is not causing a stomachache. Is important that you follow-up with your primary care physician for this issue. No emergency has been identified.
[2023-11-15 12:57] VITALS: BP 124/64; O2SAT 98
== END 2023-11-15 12:52 | disposition home or self-care (01) ==
LOC: ED 11:13
DX: M79.602 Pain in left arm (principal); I10 Essential (primary) hypertension; E78.00 Pure hypercholesterolemia, unspecified; E03.9 Hypothyroidism, unspecified; Z79.899 Other long term (current) drug therapy
CPT/HCPCS: 99281; 99283